=== PATIENT | male | born 1955 | race Caucasian/White ===

== ENCOUNTER 2020-01-27 21:46 | Emergency (ER) | payer OTHER ==
[2020-01-27 22:09] VITALS: BP 122/60; PULSE 75; TEMP 98.5; BMI 25.7
--- OUTSIDE RECORDS SUMMARY | 2020-01-27 22:09 | XMS ---
:1955 [facility] Support Name Relationship Address Phone UE Unavailable Unavailable Unavailable SABRINA BAILEY [address] [place] [address] Re-disclosure Warning The records that you are about to access may contain information from federally- assisted alcohol or drug abuse programs. If such information is present, then the following federally mandated warning applies: This information has been disclosed to you from records protected by federal confidentiality rules (42 CFR part 2). The federal rules prohibit you from making any further disclosure of this information unless further disclosure is expressly permitted by the written consent of the person to whom it pertains or as otherwise permitted by 42 CFR part 2. A general authorization for the release of medical or other information is NOT sufficient for this purpose. The Federal rules restrict any use of the information to criminally investigate or prosecute any alcohol or drug abuse patient.The records that you are about to access may contain highly sensitive health information, the redisclosure of which is protected by Article 27-F of the [facility] Public Health law. If you continue you may haveaccess to information: Regarding HIV / AIDS; Provided by facilities licensed or operated by the [facility] Office of Mental Health; or Provided by the [facility] Office for People With Developmental Disabilities. If such information is present, then the following [facility] mandated warning applies: This information has been disclosed to you from confidential records which are protected by state law. State law prohibits you from making any further disclosure of this information without the specific written consent of the person to whom it pertains, or as otherwise permitted by law. Any unauthorized further disclosure in violation of state law may result in a fine or halfway sentence or both. A general authorization for the release of medical or other information is NOT sufficient authorization for further disclosure. Insurance Providers Payer name Policy type / Policy ID Covered Covered libertarian's Policy Plan Coverage type libertarian ID relationship to Ash Information ash [facility] [id number] 01 OUTPT 1
--- NOTE | 2020-01-28 00:09 | PDOC ---
History of Present Illness - General Chief Complaint: Laceration Stated Complaint: LACERATION Time Seen by Provider: 01/27/20 22:24 - History of Present Illness Initial Comments: This 64-year-old man with a history of HLD/GERD presents with laceration of the right second/third interspace sustained just prior to presentation in his home when he was replacing a sharp kitchen knife into its cole. Patient was able to control bleeding with pressure and Band-Aid. No other injury sustained. No history of motor or sensory deficits. Unknown last tetanus prophylaxis Patient is left-hand dominant. Medications as noted below No known allergies Non-smoker/no daily alcohol or other recreational drug use Past History - Medical History Allergies/Adverse Reactions: Allergies Allergy/AdvReac Type Severity Reaction Status Date / Time No Known Allergies Allergy Verified 01/27/20 21:52 Home Medications: Ambulatory Orders Escitalopram Oxalate [Lexapro -] 20 mg PO DAILY 01/27/20 Pantoprazole Sodium [Protonix] 40 mg PO DAILY 01/27/20 Rosuvastatin [Crestor -] 10 mg PO DAILY 01/27/20 COPD: No - Psycho-Social/Smoking History Smoking History: Never smoked - Substance Abuse Hx (Audit-C & DAST Scrn) How often the patient has a drink containing alcohol: Monthly or less How often the patient has six or more drinks on one occasion: Never Score: In Men: 4 or > Positive; In Women: 3 or > Positive: 1 Screen Result (Pos requires Nsg. Audit-10AR): Negative In the last yr the pt used illegal drug/Rx for NonMed reason: No Score: Yes response is considered Positive: 0 Screen Result (Positive result requires Nsg. DAST-10): Negative Review of Systems - Review of Systems Able to Perform ROS?: Yes Comments:: 12 point review of systems is negative except for what is noted in the history of present illness *Physical Exam - Vital Signs Last Vital Signs Temp Pulse Resp BP Pulse Ox 98.5 F 75 15 122/60 100 01/27/20 21:50 01/27/20 21:50 01/27/20 21:50 01/27/20 21:50 01/27/20 21:50 - Physical Exam GENERAL: Adult male, alert and oriented x3, no acute distress HEAD: Normal with no signs of trauma. EYES: PERRLA, EOMI, sclera anicteric, conjunctiva clear. EXTREMITIES: Right hand1.5 cm full-thickness laceration interspace between the second and third fingers No motor or sensory deficits in either finger Remainder the extremity exam is normal NEUROLOGICAL: Cranial nerves II through XII grossly intact. Normal speech. No focal neurological deficits. SKIN: Warm, Dry, normal turgor, no rashes or lesions except that noted above Procedures - Laceration/Wound Repair Right 2nd digit Wound Length: to 2.5 cm Wound Explored: clean Wound's Depth, Shape: linear Irrigated w/ Saline: Yes Betadine Prep: No (Hibiclens/ethanol) Anesthesia: 1% Lidocaine Amount of Anesthetic (ccs): 2 Wound Repaired With: Sutures Suture Size/Type: 5:0 Number of Sutures: 4 Layer Closure: No Sterile Dressing Applied: Yes Splint Applied: No Progress: Area around laceration cleansed using Hibiclens/ethanol solution and sterilely draped. 1.5 mL of 1% lidocaine infiltrated into the area of the wound for local anesthesia. Wound irrigated with 30 mL sterile normal saline. No evidence of vascular or tendon disruption at base of wound. Wound closed using 4 interrupted sutures of 5-0 nylon. Bacitracin applied to the wound surface and wound covered with sterile gauze. Patient tolerated procedure well ED Progress Note - Progress Note Progress Note: As noted above, this 64-year-old man presents with laceration in the interspace between the second and third fingers of the right hand. The patient sustained this while handling a very sharp kitchen knife in his home. Patient has unsure of when his most recent tetanus prophylaxis was given. Exam as noted. Repair of the laceration was performed as noted above. Boostrix tetanus immunization given. Patient will keep the original dressing intact as dry as possible for 48 hours. After this time, regional dressing will be removed and protective dressing can be used during the day (or when patient is most active) with wound being kept open the remainder of time. Bacitracin or Neosporin ointment to be applied to the wound surface twice a day. He should have sutures removed in 1 week. If he notices increasing redness/swelling/pain in the wound, he should follow-up with his doctor or return to the ER Discharge - Discharge Information Problems reviewed: Yes Clinical Impression/Diagnosis: Laceration of finger of right hand Qualifiers: Encounter type: initial encounter Finger: index finger Damage to nail status: without damage Foreign body presence: without foreign body Qualified Code(s): S61.210A - Laceration without foreign body of right index finger without damage to nail, initial encounter Condition: Stable Disposition: HOME - Follow up/Referral Referrals: Joshua Forrest [Primary Care Provider] - - Patient Discharge Instructions Patient Printed Discharge Instructions: How to Care for a Laceration After Repair Additional Instructions: Keep original dressing in place for 48 hours, as dry as possible After 48 hours, can use protective dressing during day/open at night Bacitracin to wound twice a day until sutures removed Return or see your doctor if area becomes red, swollen, more painful Have sutures removed in 1 week - Post Discharge Activity
[2020-01-28] MEDS ORDERED: DIPHTH,PERTUSS(ACELL),TET 0.5 ML DISP.SYRIN IM ONE ×2 (00:11→00:13)
== END 2020-01-28 00:19 | disposition home or self-care (01) ==
LOC: SUPCPDRO 21:46 → FER 21:46
PROC: 0HQFXZZ Repair Right Hand Skin, External Approach (ICD-10-PCS; principal; 2020-01-27)
PROC: 3E0234Z Introduction of Serum, Toxoid and Vaccine into Muscle, Percutaneous Approach (ICD-10-PCS; 2020-01-27)
DX: S61.210A Laceration without foreign body of right index finger without damage to nail, initial encounter (principal)
CPT/HCPCS: 90715; 99284-25